=== PATIENT | male | born 1995 | race African-American/Black ===

== ENCOUNTER 2019-05-09 11:34 | Emergency (ER) | payer OTHER, SELFPAY ==
[2019-05-09 11:34] VITALS: BP 129/81; PULSE 86; RESP 18; TEMP 36.6; O2SAT 96; BMI 21.6
--- NOTE | 2019-05-09 12:59 | HMH.EDUTC ---
[facility] [place] Impression: Sinusitis Qualifiers: Sinusitis location: unspecified location Chronicity: unspecified Qualified Code(s): J32.9 - Chronic sinusitis, unspecified Disposition: Home, Self-Care Condition on Discharge: Good Instructions: Sinusitis, Sinus Headache, DI for Sinusitis Additional Instructions: Start antibiotic. Sinus infections may take 2-3 days to notice much improvement so be sure to use conservative measures as discussed for symptoms Flonase 2 spray in each nostril daily to help with nasal congestion, sinus an ear pressure/inflammation Lots of Fluids Sleep elevated Humidifer/vaporizer Follow up with family doctor if no improvement or any worsening of symptoms Prescriptions: Fluticasone Propionate [Flonase 50mcg nasal spray 16gm] 2 spr NS DAILY #1 bottle Transmission Status: Pending to [facility] methylPREDNISolone [Medrol 4mg tab] 4 mg PO DIRECTED #21 tab Transmission Status: Pending to [facility] Azithromycin [Z-Ian 250mg Tab*] 250 mg PO UD DOSE PK #6 tab Transmission Status: Pending to [facility] [place], [place] Referrals: Vlad Gutierrez [Primary Care Provider] - As needed Time of Disposition: 13:02 Medical Decision Making - Torsten Inquiry Pt receiving controlled substance: No Torsten was queried for this patient: No Vital Signs: 05/09/19 11:34 Temperature 98 F Temperature Source Oral Pulse Rate [Radial] 86 Respiratory Rate 18 Blood Pressure [Right Arm] 129/81 Blood Pressure Mean [Right Arm] 97 Blood Pressure Source [Right Arm] Automatic Cuff Blood Pressure Position [Right Arm] Sitting 02 Sat by Pulse Oximetry 96 Oxygen Delivery Method Room Air [facility] [place] - General Stated complaint: Sinus congestion Time Seen by Provider: 05/09/19 12:59 Mode of Arrival: Ambulatory Source of Information: Patient Limitations: No Limitations Description of Symptoms (Recalled from Triage Doc. by RN): FLU LAST WEEK CONTINUING WITH SINUS HEENT Symptoms (Recalled from RN notes): Yes Resp Symptoms (Recalled from RN notes): Yes Skin Symptoms (Recalled from RN notes): No MS Symptoms (Recalled from RN notes): No Functional Status (Recalled from RN notes): WNL - History of Present Illness Provider Complaint: Patient states that he had flu about a week ago and better from that now having sinus pain and pressure and blowing out yellowish green mucous from his nose and thinks he may have a sinus infection - Related Data Previous Rx's Medication Instructions Recorded Azithromycin [Z-Ian 250mg Tab*] 250 mg PO UD DOSE PK #6 tab 02/22/19 Brompheniramine/Pseudoephed/Dm 5 ml PO Q6HP PRN #240 syrup 02/22/19 [Bromfed Dm Cough Syrup] methylPREDNISolone [Medrol] 4 mg PO DIRECTED 6 Days #21 02/22/19 tab.ds.pk Azithromycin [Z-Ian 250mg Tab*] 250 mg PO UD DOSE PK #6 tab 05/09/19 Fluticasone Propionate [Flonase 2 spr NS DAILY #1 bottle 05/09/19 50mcg nasal spray 16gm] methylPREDNISolone [Medrol 4mg 4 mg PO DIRECTED #21 tab 05/09/19 tab] Allergies Allergy/AdvReac Type Severity Reaction Status Date / Time No Known Allergies Allergy Unverified 05/01/17 15:00 - Worker's Comp Is this a Worker's Comp case?: No [facility] History - Hepatitis A Screen Drug use history?: No High risk sexual behaviors?: No History of sexually transmitted infection?: No Currently employed?: No Childcare worker?: No Do you have indoor plumbing?: Yes Do you have electricity?: Yes Attestation statement:: This patient has been screened for Hepatitis A risk factors. I have reviewed the patient's past medical history: Yes 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: Denies:: Cancer, Diabetes Mellitus Type 1, Diabetes Mellitus Type 2, MRSA Amputation: No - Social History Educational Level: Completed High School Smoking Status: Never smoker Tobacco Type: smokeless tobacco # Packs/Day (cigarettes): 0 Alcohol Intake: never Alcohol Intake Frequency:: a few time
[2019-05-09 13:15] VITALS: BP 129/81; PULSE 86; RESP 18; TEMP 36.6; O2SAT 96
== END 2019-05-09 13:16 | disposition home or self-care (01) ==
PROVIDERS: Emergency Provider Nurse Practitioner; PCP Internal Medicine
DX: J32.9 Chronic sinusitis, unspecified (principal)
CPT/HCPCS: 99201

== ENCOUNTER → 2019-12-17 08:09 | Outpatient (CLI) | payer OTHER, SELFPAY ==
--- NOTE | 2019-12-17 08:11 | US_ITS ---
PROCEDURE: US ABDOMEN LIMITED CLINICAL INDICATION: EPIGASTRIC PAIN,NAUSEA COMPARISON: No exams were available for comparison FINDINGS: PANCREAS: Unremarkable. No obvious mass or abnormal fluid collection. No ductal dilatation LIVER: No focal liver lesions demonstrated. Homogeneous echogenicity. No intrahepatic biliary ductal dilatation evident. There is appropriate direction of blood flow within a non dilated portal vein RIGHT KIDNEY: Unremarkable. Normal size and echogenicity. No hydronephrosis GALLBLADDER: No gallstones, gallbladder wall thickening, pericholecystic fluid, or biliary dilatation. IMPRESSION: Unremarkable limited abdominal ultrasound as detailed above disc Dictated b Omero Pino MD 12/17/2019 14:45 Omero Pino MD in [place] 12/17/2019 14:45
--- NOTE | 2019-12-17 08:12 | FL_ITS ---
PROCEDURE: FL UPPER GI W AIR CLINICAL INDICATION: EPIGASTRIC PAIN,NAUSEA COMPARISON: No exams were available for comparison TECHNIQUE: FLUOROSCOPY TIME : 1 minutes and 41 seconds FINDINGS: The esophagus, stomach, and duodenum have an unremarkable appearance.There is no evidence of hiatal hernia. No ulcer or mass evident. No mucosal abnormalities apparent. There is normal peristalsis. The duodenal C-loop is nondisplaced. There was some mild GE reflux noted during the exam. IMPRESSION: Mild gastroesophageal reflux otherwise negative upper GI Dictated b Omero Pino MD 12/17/2019 14:43 Omero Pino MD in [place] 12/17/2019 14:43
== END ==
PROVIDERS: PCP Internal Medicine; Visit Provider Internal Medicine
DX: R10.13 Epigastric pain (principal); R11.0 Nausea
CPT/HCPCS: 74246; 76705

== ENCOUNTER 2020-02-19 13:17 | Emergency (ER) | payer OTHER, SELFPAY ==
[2020-02-19 13:23] VITALS: BP 138/68; PULSE 83; RESP 16; TEMP 36.6; O2SAT 100; BMI 21.6
--- NOTE | 2020-02-19 13:24 | XR_ITS ---
PROCEDURE: XR HAND RT MIN 3V CLINICAL INDICATION: hand pain, punched wall COMPARISON: CR HANDL3 HAND-LT-3 VIEWS from 06/02/2016 FINDINGS: No fracture or dislocation. No lytic or blastic change. There is normal mineralization. The joint spaces are well-preserved. No significant degenerative/arthritic changes. No erosive changes evident. Other findings:None. IMPRESSION: No acute findings. Dictated by: Omero Pino MD 02/19/2020 15:56 Omero Pino MD in [place] 02/19/2020 15:56
--- NOTE | 2020-02-19 13:24 | HMH.EDGENADL ---
ED Disposition Clinical Impression: Injury of right hand Qualifiers: Encounter type: initial encounter Qualified Code(s): S69.91XA - Unspecified injury of right wrist, hand and finger(s), initial encounter Sprain of hand Qualifiers: Encounter type: initial encounter Laterality: right Qualified Code(s): S63.91XA - Sprain of unspecified part of right wrist and hand, initial encounter Disposition: Home, Self-Care Condition on Discharge: Good Instructions: Sprain Additional Instructions: You have been evaluated for right hand injury, diagnosed with a sprain. No fracture seen on x-rays. Please take Tylenol ibuprofen for pain. Follow-up with your primary care doctor. Referrals: Vlad Gutierrez [Primary Care Provider] - Forms: Work/School Release Time of Disposition: 15:05 - Critical Care Critical Care Time: No Attestation: On , the high probability of a clinically significant, sudden or life threatening deterioration of the following system(s) required my full and direct attention, intervention and personal management. The time I documented below is in addition to time spent performing reported procedures but includes the following listed in this critical care notation. Medical Decision Making - Medical Records Medical records reviewed: Yes: I reviewed the patient's medical records. - Torsten Inquiry Pt receiving controlled substance: No Vital Signs: 02/19/20 13:23 02/19/20 13:45 Temperature 97.9 F Temperature Source Oral Pulse Rate [Right Brachial] 83 78 Respiratory Rate 16 Blood Pressure [Right Arm] 138/68 141/80 H Blood Pressure Mean [Right Arm] 91 100 Blood Pressure Source [Right Arm] Automatic Cuff Automatic Cuff Blood Pressure Position [Right Arm] Sitting Sitting 02 Sat by Pulse Oximetry 100 100 Oxygen Delivery Method Room Air Room Air Orders (Tests/Meds): ORDERS Category Date Time Status XR hand RT min 3V Stat Exams 02/19/20 13:24 Taken - Radiology Data #1 Image(s): Hand Image Reviewed: Yes I reviewed the patient's radiology image Preliminary Findings: Normal/NAD No acute fracture or dislocation in the metatarsals or phalanges Medical Decision Narrative: In summary this is a 24-year-old male presenting to the emergency department with right hand pain after punching a toolbox. Patient clinically stable on arrival. Concern for fracture of the metacarpals or phalanx. Will obtain x-rays of the right hand. X-rays do not show displaced fracture or obvious bony deformity. Patient counseled that he should take Tylenol and ibuprofen for pain. Follow-up with PCP. Stable for discharge. General Adult HPI - General Stated complaint: punched wall, rt hand pain Time Seen by Provider: 02/19/20 13:24 - History of Present Illness HPI narrative: 24-year-old [id number] male presenting to the emergency department with right hand pain. Yesterday afternoon he punched a toolbox with his right hand. Had immediate pain over the knuckles of his middle and ring fingers. Has not taken any medications for pain. Today noticed he had increased swelling. 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 Numbness on the dorsal aspect of his hand between the third and fourth fingers. No breaks in the skin. No pain in the wrist, forearm, elbow. - Related Data Previous Rx's Medication Instructions Recorded Azithromycin [Z-Ian 250mg Tab*] 250 mg PO UD DOSE PK #6 tab 02/22/19 Brompheniramine/Pseudoephed/Dm 5 ml PO Q6HP PRN #240 syrup 02/22/19 [Bromfed Dm Cough Syrup] methylPREDNISolone [Medrol] 4 mg PO DIRECTED 6 Days #21 02/22/19 tab.ds.pk Azithromycin [Z-Ian 250mg Tab*] 250 mg PO UD DOSE PK #6 tab 05/09/19 Fluticasone Propionate [Flonase 2 spr NS DAILY #1 bottle 05/09/19 50mcg nasal spray 16gm] methylPREDNISolone [Medrol 4mg 4 mg PO DIRECTED #21 tab 05/09/19 tab] cephALEXin [Keflex 500mg Cap] 500 mg PO TID #30 cap 05/10/19 Allergies Allergy/AdvReac Type Severity Reaction Status Date
[2020-02-19 13:45] VITALS: BP 141/80; PULSE 78; O2SAT 100
[2020-02-19 15:11] VITALS: BP 140/72; PULSE 74; RESP 16; TEMP 36.6; O2SAT 99
== END 2020-02-19 15:13 | disposition home or self-care (01) ==
PROVIDERS: Emergency Provider Emergency Medicine; PCP Internal Medicine
DX: S63.91XA Sprain of unspecified part of right wrist and hand, initial encounter (principal); W22.01XA Walked into wall, initial encounter; Y92.89 Other specified places as the place of occurrence of the external cause
CPT/HCPCS: 73130; 99282

== ENCOUNTER 2020-11-08 19:39 | Emergency (ER) | payer OTHER, SELFPAY ==
[2020-11-08 19:46] VITALS: BP 143/75; PULSE 76; RESP 14; TEMP 36.8; O2SAT 98; BMI 21.6
--- NOTE | 2020-11-08 19:48 | XR_ITS ---
PROCEDURE INFORMATION: Exam: XR Left Wrist Exam date and time: 11/08/2020 7:48 PM Age: 25 years old Clinical indication: Patient HX: Lifted object and now pain in left wrist and hand; Additional info: Injury TECHNIQUE: Imaging protocol: XR Left wrist. Views: 3 or more views. COMPARISON: CR FINL5 [id number] (PINKY)-3 VIEWS 07/14/2016 3:51 PM FINDINGS: Bones/joints: No acute fracture or dislocation. Old healed 5th metacarpal fracture noted. Soft tissues: No significant soft tissue swelling or radiopaque foreign bodies. IMPRESSION: No acute appearing findings.
--- NOTE | 2020-11-08 19:48 | XR_ITS ---
PROCEDURE INFORMATION: Exam: XR Left Hand Exam date and time: 11/08/2020 7:48 PM Age: 25 years old Clinical indication: Patient HX: Lifted object at home and now pain left wrist and hand; Additional info: Injury TECHNIQUE: Imaging protocol: XR Left hand. Views: 3 or more views. COMPARISON: CR HANDL3 HAND-LT-3 VIEWS 06/02/2016 11:21 AM FINDINGS: Bones/joints: No acute fracture or dislocation. Old healed 5th metacarpal fracture. Soft tissues: Normal. IMPRESSION: No acute findings.
--- NOTE | 2020-11-08 20:24 | HMH.EDUPEXT ---
ED Disposition Clinical Impression: Sprain and strain of wrist Sprain of hand, left Qualifiers: Encounter type: initial encounter Qualified Code(s): S63.92XA - Sprain of unspecified part of left wrist and hand, initial encounter Disposition: Home, Self-Care Condition on Discharge: Good Instructions: DI for Wrist Strain Additional Instructions: ice and see pcp for follow up Prescriptions: Meloxicam [Mobic 15 mg tab] 15 mg PO DAILY #10 tab Transmission Status: Pending to [facility] Referrals: Vlad Gutierrez [Primary Care Provider] - - Critical Care Critical Care Time: No Attestation: On 11/08/20, the high probability of a clinically significant, sudden or life threatening deterioration of the following system(s) required my full and direct attention, intervention and personal management. The time I documented below is in addition to time spent performing reported procedures but includes the following listed in this critical care notation. Medical Decision Making - Medical Records Medical records reviewed: Yes: I reviewed the patient's medical records. - Torsten Inquiry Pt receiving controlled substance: No Vital Signs: 11/08/20 19:46 Temperature 98.2 F Temperature Source Oral Pulse Rate [Right] 76 Respiratory Rate 14 Blood Pressure [Right Arm] 143/75 H Blood Pressure Mean [Right Arm] 97 Blood Pressure Source [Right Arm] Automatic Cuff Blood Pressure Position [Right Arm] Sitting 02 Sat by Pulse Oximetry 98 Oxygen Delivery Method Room Air - Lab Data Lab results reviewed: Yes: I reviewed the patient's lab results. Orders (Tests/Meds): ED MEDICATIONS Discontinued Medications Generic Name Dose Route Start Last Admin Trade Name Freq PRN Reason Stop Dose Admin Ketorolac Tromethamine 60 mg 11/08/20 19:56 11/08/20 19:58 Ketorolac 60mg/2ml Vial IM 11/08/20 19:57 60 mg ONCE ONE Administration ORDERS Category Date Time Status XR hand LT min 3V Stat Exams 11/08/20 19:48 Taken XR wrist LT min 3V Stat Exams 11/08/20 19:48 Taken - Radiology Data #1 Image(s): Wrist, Hand Image Reviewed: Yes I reviewed the patient's radiology image Preliminary Findings: No Fracture Seen Medical Decision Narrative: no fx seen Upper Extremity HPI - General Chief Complaint: Extremity Injury, Upper Stated Complaint: injured L hand lifting object Time Seen by Provider: 11/08/20 20:00 Mode of Arrival: Ambulatory Source of Information: Patient, Medical Record Limitations: No Limitations Description of Symptoms (Recalled from ER Triage Doc. by RN): Pt states he was lifting about an 135 lbs clutch and started having pain on the top of his left hand radiating to his wrist.. Pt has no visable deformity or edema. Pt has full ROM and normal Cap refill. Pt has injured that hand in the past. - History of Present Illness HPI narrative: acute lt hand /wrist pain after lifting today - not workman comp complaint: injury to: left, wrist, hand Onset (ago): hour(s) Other Extremity Injury: Left: hand, wrist Other injuries: none Handedness: right Place: home Severity: moderate Associated symptoms: denies other symptoms - Related Data Previous Rx's Medication Instructions Recorded Azithromycin [Z-Ian 250mg Tab*] 250 mg PO UD DOSE PK #6 tab 02/22/19 Brompheniramine/Pseudoephed/Dm 5 ml PO Q6HP PRN #240 syrup 02/22/19 [Bromfed Dm Cough Syrup] methylPREDNISolone [Medrol] 4 mg PO DIRECTED 6 Days #21 02/22/19 tab.ds.pk Azithromycin [Z-Ian 250mg Tab*] 250 mg PO UD DOSE PK #6 tab 05/09/19 Fluticasone Propionate [Flonase 2 spr NS DAILY #1 bottle 05/09/19 50mcg nasal spray 16gm] methylPREDNISolone [Medrol 4mg 4 mg PO DIRECTED #21 tab 05/09/19 tab] cephALEXin [Keflex 500mg Cap] 500 mg PO TID #30 cap 05/10/19 Meloxicam [Mobic 15 mg tab] 15 mg PO DAILY #10 tab 11/08/20 Allergies Allergy/AdvReac Type Severity Reaction Status Date / Time No Known Allergies All
[2020-11-08 21:17] VITALS: BP 138/68; PULSE 70; RESP 16; TEMP 36.8; O2SAT 99
== END 2020-11-08 21:20 | disposition home or self-care (01) ==
PROVIDERS: Emergency Provider Emergency Medicine; PCP Internal Medicine
DX: S63.92XA Sprain of unspecified part of left wrist and hand, initial encounter (principal); X50.0XXA Overexertion from strenuous movement or load, initial encounter; Y92.89 Other specified places as the place of occurrence of the external cause
CPT/HCPCS: 29125; 73110; 73130; 96372; 99282

== ENCOUNTER 2021-06-11 12:56 | Emergency (ER) | payer OTHER, SELFPAY ==
[2021-06-11 12:58] VITALS: BP 154/62; PULSE 95; RESP 16; TEMP 37; O2SAT 95; BMI 25.1
[2021-06-11 13:05] VITALS: BP 154/62; PULSE 88; O2SAT 96
[2021-06-11 13:30] VITALS: BP 133/78; PULSE 81; O2SAT 95
--- NOTE | 2021-06-11 13:56 | XR_ITS ---
PROCEDURE INFORMATION: Exam: XR Chest Exam date and time: 06/11/2021 1:56 PM Age: 26 years old Clinical indication: Cough TECHNIQUE: Imaging protocol: XR of the chest. Views: 1 view. COMPARISON: RF FL UPPER GI W AIR 12/17/2019 9:15 AM FINDINGS: Lungs: Unremarkable. No consolidation. Pleural spaces: Unremarkable. No pleural effusion. No pneumothorax. Heart/Mediastinum: Unremarkable. No cardiomegaly. Bones/joints: No acute findings. IMPRESSION: No acute findings.
[2021-06-11 14:00] VITALS: BP 129/70; PULSE 76; RESP 16; O2SAT 95
[2021-06-11 15:00] VITALS: BP 135/78; PULSE 63; RESP 16; O2SAT 96
--- NOTE | 2021-06-11 15:30 | HMH.EDGENADL ---
ED Disposition Clinical Impression: COVID-19 Disposition: Home, Self-Care Condition on Discharge: Good Referrals: Vlad Gutierrez [Primary Care Provider] - - Critical Care Critical Care Time: No Attestation: On 06/11/21, the high probability of a clinically significant, sudden or life threatening deterioration of the following system(s) required my full and direct attention, intervention and personal management. The time I documented below is in addition to time spent performing reported procedures but includes the following listed in this critical care notation. Medical Decision Making - Medical Records Medical records reviewed: Yes: I reviewed the patient's medical records. - Torsten Inquiry Pt receiving controlled substance: No Torsten was queried for this patient: No Vital Signs: 06/11/21 12:58 06/11/21 13:05 06/11/21 13:30 Temperature 98.6 F Temperature Source Oral Pulse Rate 88 81 Pulse Rate [Right Radial] 95 H Respiratory Rate 16 Blood Pressure 154/62 H 133/78 Blood Pressure [Right Arm] 154/62 H Blood Pressure Mean 116 96 Blood Pressure Mean [Right Arm] 92 Blood Pressure Source [Right Arm] Automatic Cuff Blood Pressure Position [Right Arm] Sitting 02 Sat by Pulse Oximetry 95 96 95 Oxygen Delivery Method Room Air 06/11/21 14:00 Temperature Temperature Source Pulse Rate 76 Pulse Rate [Right Radial] Respiratory Rate 16 Blood Pressure 129/70 Blood Pressure [Right Arm] Blood Pressure Mean 89 Blood Pressure Mean [Right Arm] Blood Pressure Source [Right Arm] Blood Pressure Position [Right Arm] 02 Sat by Pulse Oximetry 95 Oxygen Delivery Method - Lab Data Lab results reviewed: Yes: I reviewed the patient's lab results. Orders (Tests/Meds): ED MEDICATIONS Discontinued Medications Generic Name Dose Route Start Last Admin Trade Name Freq PRN Reason Stop Dose Admin Acetaminophen 1,000 mg 06/11/21 13:56 06/11/21 14:29 Acetaminophen 500mg Tab PO 06/11/21 13:57 1,000 mg ONCE ONE Administration Lactated Ringer's 1,000 mls @ 999 mls/hr 06/11/21 14:00 06/11/21 14:29 Lactated Ringer's 1000 Ml Bag IV 06/11/21 15:00 999 mls/hr .Q1H1M KIRT Administration Ketorolac Tromethamine 15 mg 06/11/21 13:56 06/11/21 14:30 Ketorolac 30mg/Ml Vial IV 06/11/21 13:57 15 mg ONCE ONE Administration ORDERS Category Date Time Status Covid-19 Nasal PCR ([facility]) Routine Lab 06/11/21 13:05 Received Medical Decision Narrative: Patient is a 26-year-old male with no past medical history presenting to the ED for body aches. Patient is awake, alert, not in acute distress. Patient is medically stable, afebrile. Patient's physical exam is unremarkable. DDX includes but is not limited to for respiratory infection, COVID-19, low concern for bacterial pneumonia. At this point a Covid swab is performed. X-ray is performed which shows no focal consolidation. She is given IV fluids, Tylenol, Toradol. Patient feels much better. At this point patient is stable for discharge. Patient is given strict return precautions and follow-up instructions. General Adult HPI - General Chief complaint: Upper Respiratory Infection Stated complaint: covid exposure, symptoms Time Seen by Provider: 06/11/21 12:58 Mode of Arrival: Ambulatory Limitations: No Limitations Description of Symptoms (Recalled from ER Triage Doc. by RN): Pt c/o fever, bodyaches, weakness, REYES since yesterday - History of Present Illness HPI narrative: Patient is a 26-year-old male with no past medical history presenting to the ED with body aches. Patient states that he has had arthralgias, myalgias, fevers for the past 2 days. Patient states that he has a sick contacts per his mom and sister who were Covid positive last week. Patient is unvaccinated. Patient does not have any respiratory symptoms. Denies any cough, shortness of breath, chest pain. Patient denies any abdominal pain, nausea,
[2021-06-11 16:38] VITALS: BP 131/76; PULSE 70; RESP 15; TEMP 37; O2SAT 96
== END 2021-06-11 16:39 | disposition home or self-care (01) ==
PROVIDERS: Emergency Provider Emergency Medicine; PCP Internal Medicine
DX: J06.9 Acute upper respiratory infection, unspecified (principal); U07.1 COVID-19
CPT/HCPCS: 71045; 96365; 96375; 99283; C9803; U0003; U0005

== ENCOUNTER 2021-07-15 18:19 | Emergency (ER) | payer OTHER, SELFPAY ==
[2021-07-15 18:19] VITALS: BP 145/92; PULSE 64; RESP 16; TEMP 36.8; O2SAT 99; BMI 24.4
--- NOTE | 2021-07-15 18:27 | XR_ITS ---
PROCEDURE INFORMATION: Exam: XR Left Hand Exam date and time: 07/15/2021 6:27 PM Age: 26 years old Clinical indication: Injury or trauma; Other: Mashed finger; Work related; Blunt trauma (contusions or hematomas); Left; Middle finger TECHNIQUE: Imaging protocol: XR Left hand. Views: 3 or more views. COMPARISON: CR XR HAND LT MIN 3V 11/08/2020 7:54 PM FINDINGS: Bones/joints: Acute oblique fracture extends through the tuft of the 3rd distal phalanx, nondisplaced, only well seen on AP series 1. Mild deformity of the 5th metacarpal diaphysis has the appearance of an old healed injury. No other acute appearing fracture or dislocation. No significant arthritic deformities. There are no lytic skeletal lesions seen. Bone mineralization appears within normal limits. Soft tissues: Soft tissue swelling. No radiopaque foreign bodies. No pathologic soft tissue calcification. IMPRESSION: 1. Acute nondisplaced fracture of tuft of the 3rd distal phalanx. 2. Additional nonemergency and chronic findings as above.
--- NOTE | 2021-07-15 19:04 | HMH.EDGENADL ---
ED Disposition Clinical Impression: Fracture of distal phalanx of left middle finger Qualifiers: Encounter type: initial encounter Fracture type: closed Fracture alignment: nondisplaced Qualified Code(s): S62.663A - Nondisplaced fracture of distal phalanx of left middle finger, initial encounter for closed fracture Disposition: Home, Self-Care Condition on Discharge: Good Instructions: DI for Finger Fracture Prescriptions: Amoxicillin/Potassium Clav [Amox-Clav 875-125 mg Tablet] 1 tab PO BID #14 tab Transmission Status: Pending to [facility] Ibuprofen [Ibuprofen 800mg Tablet] 800 mg PO TIDP PRN #20 tab PRN Reason: Moderate Pain Transmission Status: Pending to [id number] Referrals: Vlad Gutierrez [Primary Care Provider] - - Critical Care Critical Care Time: No Attestation: On 07/15/21, the high probability of a clinically significant, sudden or life threatening deterioration of the following system(s) required my full and direct attention, intervention and personal management. The time I documented below is in addition to time spent performing reported procedures but includes the following listed in this critical care notation. Medical Decision Making - Medical Records Medical records reviewed: Yes: I reviewed the patient's medical records. - Torsten Inquiry Pt receiving controlled substance: No Vital Signs: 07/15/21 18:19 Temperature 98.3 F Temperature Source Oral Pulse Rate [Right Radial] 64 Respiratory Rate 16 Blood Pressure [Right Arm] 145/92 H Blood Pressure Mean [Right Arm] 109 Blood Pressure Source [Right Arm] Automatic Cuff Blood Pressure Position [Right Arm] Sitting 02 Sat by Pulse Oximetry 99 Oxygen Delivery Method Room Air Orders (Tests/Meds): ED MEDICATIONS Discontinued Medications Generic Name Dose Route Start Last Admin Trade Name Freq PRN Reason Stop Dose Admin Ibuprofen 800 mg 07/15/21 18:27 07/15/21 18:50 Ibuprofen 400 Mg Tablet PO 07/15/21 18:28 800 mg ONCE ONE Administration - Radiology Data #1 Image(s): Hand Image Reviewed: Yes I reviewed the patient's radiology results, Yes I reviewed the patient's radiology image, Yes I have reviewed radiologist's interpretation IMPRESSION: 1. Acute nondisplaced fracture of tuft of the 3rd distal phalanx. 2. Additional nonemergency and chronic findings as above. - Reevaluation(s) Time: 19:36 Reevaluation #1: Patient does have evidence of a distal fracture of the distal phalanx of the middle digit. Patient was placed in immobilizer. Placed on antibiotics. Needs to follow-up with hand surgery. Given strict return precautions. Verbalized understanding. Medical Decision Narrative: 26-year-old male presented to the emergency department with some left middle finger pain after direct trauma. Patient is small abrasion. Up-to-date on tetanus. Imaging obtained. General Adult HPI - General Chief complaint: PAIN Stated complaint: L middle finger smashed Time Seen by Provider: 07/15/21 18:25 Mode of Arrival: Ambulatory Limitations: No Limitations Description of Symptoms (Recalled from ER Triage Doc. by RN): Pt c/o left middle finger pain. Advises that he smashed it - History of Present Illness HPI narrative: 26-year-old male presented to the emergency department with injury to his left middle finger. Patient states that he slammed his finger in a machine while he was at work. He is a very small abrasion to the palmar aspect of the middle finger. He complains of pain in the distal aspect. Still has good range of motion, elicits pain. Denies any other injuries. Up-to-date on tetanus. No chest pain shortness of breath. No abdominal pain or vomiting. No headache or change in vision. No focal weakness. - Related Data Previous Rx's Medication Instructions Recorded Meloxicam [Mobic 15 mg tab] 15 mg PO DAILY #10 tab 11/08/20 buspirone 5 mg tablet 5 mg PO BID #60 tab 0
[2021-07-15 19:54] VITALS: BP 134/75; PULSE 60; RESP 18; TEMP 36.8; O2SAT 99
== END 2021-07-15 19:55 | disposition home or self-care (01) ==
PROVIDERS: Emergency Provider Emergency Medicine; PCP Internal Medicine
DX: S62.663A Nondisplaced fracture of distal phalanx of left middle finger, initial encounter for closed fracture (principal); F17.210 Nicotine dependence, cigarettes, uncomplicated; Z79.899 Other long term (current) drug therapy; Y93.89 Activity, other specified; Y92.89 Other specified places as the place of occurrence of the external cause; Y99.0 Civilian activity done for income or pay
CPT/HCPCS: 73130; 99283

== ENCOUNTER → 2021-10-22 09:36 | Outpatient (CLI) | payer OTHER, SELFPAY | PROVIDERS: PCP Internal Medicine; Visit Provider Urology | DX: Z01.812 Encounter for preprocedural laboratory examination (principal); Z20.822 Contact with and (suspected) exposure to COVID-19; Z30.2 Encounter for sterilization | CPT/HCPCS: C9803; U0003; U0005 ==

== ENCOUNTER 2021-10-24 09:27 | Day surgery (SDC) | payer OTHER, SELFPAY ==
[2021-10-20 14:18] VITALS: BMI 25.1
[2021-10-24 09:54] VITALS: BP 136/77; PULSE 59; RESP 14; TEMP 36.7; O2SAT 98
[2021-10-24 11:13] VITALS: BP 125/86; PULSE 58; RESP 18; TEMP 36.3; O2SAT 99
[2021-10-24 11:21] VITALS: BP 125/86; PULSE 58; RESP 18; O2SAT 99
--- NOTE | 2021-10-24 12:33 | HMH.OPNOTE ---
Date of procedure: 10/24/21 Pre-op Diagnosis:: Sterilization Post-op Diagnosis:: Sterilization Procedure performed:: Vasectomy Surgeon:: Noe Murray MD Anesthesia: local Estimated blood loss (mL): 2 Clinical Note:: 26-year-old male seen previously for vasectomy consultation presents for the procedure today. Operative findings:: Physical exam showed normal sized testicles without evidence of masses or other abnormality. Operative note:: Patient taken to the operating room after informed consent was obtained. On the stretcher he was prepped and draped in the standard surgical fashion physical examination revealed normal scrotum and testicles. The left vas was palpated and brought up to the midline raphae. Local anesthetic was placed under the skin and in and around the vas. Scalpel was then used to make a small incision in the skin in the vas was grasped with a tenaculum and brought up through the incision. The basal sheath was incised and the vas proper was isolated from its surrounding tissue. 1 clip was placed proximally and distally and a 1 cm segment of the vas excised. The basal lumen was cauterized and hemostasis achieved of the surrounding tissues. The left vas was dropped back into the hemiscrotum and the identical procedure was performed on the right side bringing the right vas up through the same midline incision. After the right vas was ligated and clipped it too was got back into the right hemiscrotum. There was good hemostasis and a 3-0 chromic in a horizontal mattress fashion was placed into the skin. Compression dressing applied. Patient tolerated procedure well no complications. Condition: stable Disposition: same day Specimens:: Vas segments were not sent Complications:: None
== END 2021-10-24 11:21 | disposition home or self-care (01) ==
PROVIDERS: PCP Internal Medicine; Visit Provider Urology
PROC: (CPT 55250; principal; 2021-10-24 10:30)
DX: Z30.2 Encounter for sterilization (principal); Z79.899 Other long term (current) drug therapy
CPT/HCPCS: 55250

== ENCOUNTER 2022-01-26 02:10 | Observation (INO) | payer OTHER, SELFPAY ==
[2022-01-26] VITALS (22 sets, daily range): BP systolic 96–153; BP diastolic 51–82; PULSE 48–78; RESP 11–20; TEMP 36.5–36.9; O2SAT 96–100; BMI 25.1; BMI 23.8
--- NOTE | 2022-01-26 02:19 | ECG_ITS ---
APPROVED REPORT Exam: Resting ECG HR:65 bpm ECG Measurements Heart Rate 65 AXES VA 148 P 71 QRSd 78 QRS 87 QT 485 T 62 QTc 496 Conclusion SINUS RHYTHM WITH SINUS ARRHYTHMIA PROLONGED QT INTERVAL ABNORMAL ECG UNCONFIRMED REPORT Electronically signed by : Kaleb Bustamante MD 01/26/2022 19:28:07
--- NOTE | 2022-01-26 02:22 | HMH.EDGENADL ---
Discharge Plan Disposition Patient Disposition: Admitted as Observation Condition: Fair Prescriptions Prescriptions: No Action ibuprofen 800 MG tablet 800 mg PO TIDP PRN (Reason: Moderate Pain) Qty: 20 0RF fluticasone propionate 120 SPRAY bottle 1 spr NS BID fluoxetine 20 MG capsule 20 mg PO DAILY Referrals Follow up/Referrals: Vlad Gutierrez MD [Primary Care Provider] - See instructions Clinical Impressions Clinical Impression: Medication overdose, Prolonged QT interval Discharge ED Provider: Kacy Elizabeth Adult HPI General Chief complaint: Psychiatric Symptoms Stated complaint: Intentionally took 15-20 Buspar Time Seen by Provider: 01/26/22 02:22 Mode of Arrival: Ambulatory Source of Information: Patient Limitations: No Limitations History of Present Illness HPI narrative: 26-year-old male presenting to the emergency department after intentional overdose. Over the course of the last hour he has taken as many as 15 tablets of 5 mg buspirone. This is a medication that is prescribed to him. He took the medication in an attempt to end his life. Currently feels somewhat lightheaded. Denies vision changes, chest pain, shortness of breath. Says he has been very depressed. Going through a break-up with his and their children. Denies any coingestions, alcohol or other medications. He has been hospitalized for mental health before, about 1 year ago at [facility] [place] Related Data Home Medications Medication Instructions Recorded Confirmed fluoxetine 20 mg capsule 20 mg PO DAILY Depression 10/24/21 10/24/21 fluticasone propionate 50 1 spr intranasal BID Allergy 10/24/21 10/24/21 mcg/actuation nasal symptoms spray,suspension Previous Rx's Medication Instructions Recorded ibuprofen 800 mg tablet 800 mg PO TIDP PRN Moderate Pain 07/15/21 #20 tabs Allergies Allergy/AdvReac Type Severity Reaction Status Date / Time No Known Allergies Allergy Verified 10/24/21 09:53 PFSH PFSH Social History Smoking Status: Former smoker alcohol intake: current substance use type: marijuana current occupational status: employed Travel in the last 8 weeks: None household members: spouse and family housing: house number of children: 1 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 caffeine: Yes ROS Obtained: Yes All systems reviewed & no additional complaints except as documented Constitutional Constitutional: Denies chills, Denies fever(s) and Denies headache(s) Eyes Eyes: Denies blind spots and Denies blurry vision ENT Ears, Nose, Mouth, and Throat: Reports dizziness, Denies dry mouth, Denies headache(s) and Reports other (lightheaded) Cardiovascular Cardiovascular: Denies chest pain, Denies dyspnea and Denies palpitations Respiratory Respiratory: Denies cough and Denies dyspnea Gastrointestinal Gastrointestingal: Denies abdominal pain, nausea or vomiting Integumentary/Breasts Skin/Breast: Denies redness and Denies rash Neurologic Neurologic: Reports dizziness and Denies headache(s) Endocrine Endocrine: Denies palpitations Physical Exam General General appearance: alert and in no apparent distress Head Head exam: atraumatic and normocephalic Eye Eye exam: Present normal appearance; Absent conjunctival redness Respiratory Respiratory exam: Present normal lung sounds bilaterally; Absent respiratory distress or wheezes Cardiovascular Cardiovascular exam: Present regular rate and normal rhythm Abdominal Exam Abdominal exam: Present soft; Absent distention or tenderness Extremities Exam Extremities exam: Present normal inspection and full ROM Neurological Exam Neurological exam: Present alert, oriented X3 and normal gait Psychiatric Psychiatric exam: Present normal affect and depressed (tearful) Skin Skin exam: Present warm and dry; Absent rash Medical Decision Making Medical Records Medical records reviewed: Yes I reviewed the patient's medical records.
--- NOTE | 2022-01-26 02:25 | PC.NURSE ---
ONE ON ONE INITIATED, CLOTHING REMOVED AND PLACED IN GOWN.
--- NOTE | 2022-01-26 02:34 | PC.NURSE ---
POISON CONTROL CALLED AT [id number] TO CATHRYN AND WAS DIRECTED TO MONITOR SYMPTOMS AND ORDER CMP,TYLENOL, ASPRIN, EKG,UDS IV FLUIDS AND BENZOS FOR SEIZURES
[2022-01-26 02:35] LABS: Coronavirus 19, PCR Not Detected (NotDetected); Influenza A, PCR Not Detected (NotDetected); Influenza B, PCR Not Detected (NotDetected)
--- NOTE | 2022-01-26 02:35 | PC.NURSE ---
Pt advises that he is willing to go somewhere voluntarily. He also asked if someone would call and update his mother.
[2022-01-26 02:43] LABS: Chloride 103 mmol/L (98-107); Sodium 139 mmol/L (136-145)
[2022-01-26 02:44] LABS: Potassium 3.5 mmoL/L (3.5-5.1)
[2022-01-26 02:46] LABS: Anion Gap 11.5 mEq/L (5-15); Blood Urea Nitrogen 15 mg/dl (9-20); Carbon Dioxide 28 mmol/L (22.0-30.0); Creatinine Clearance Estimated 130 mL/min (50-200); Estimated Glomerular Filt Rate 91 ml/min (>60); GFR (African American) 110 ML/MIN (>60)
[2022-01-26 02:47] LABS: Calcium 8.7 mg/dl (8.4-10.2); Glucose 100 mg/dl (74-100)
[2022-01-26 02:52] LABS: Amphetamine/Metha Screen,Urine Negative ng/ml (<1000)
[2022-01-26 02:53] LABS: Barbiturates Screen,Urine Negative ng/ml (<200); Benzodiazepines Screen,Urine Negative ng/ml (<200)
[2022-01-26 02:54] LABS: Cannabinoid Screen,Urine Negative ng/ml (<50); Cocaine Screen,Urine Negative ng/ml (<300)
[2022-01-26 02:55] LABS: Methadone Screen,Urine Negative ng/ml (<300)
[2022-01-26 02:56] LABS: Opiate Screen,Urine Negative ng/ml (<300); Phencyclidine Screen,Urine Negative ng/ml (<25)
[2022-01-26 02:59] LABS: Acetaminophen < 10 ug/ml (10-30); Ethyl Alcohol < 10 mg/dl (0-10); Salicylate < 1.0 mg/dL (2.0-20.0)
--- NOTE | 2022-01-26 03:00 | PC.NURSE ---
Pt asked for us to call his sister, Marleen. Called but v/m not set up.
--- NOTE | 2022-01-26 04:50 | PC.NURSE ---
Called [facility], s/w dental insurance coordinator and gave information for possible transfer. Will fax EKG, labs, and face-sheet to fax [phone]
--- NOTE | 2022-01-26 05:23 | PC.NURSE ---
[facility] called back requesting CBC and Liver panel
[2022-01-26 05:27] LABS: Basophils # 0.2 K/mm3 (0-0.2); Eosinophils # 0.5 K/mm3 (0.0-0.4); Eosinophils % 4.7 % (0.1-12.0); Hematocrit 49.4 % (42.0-52.0); Hemoglobin 16.8 g/dL (14.1-18.0); Lymphocytes # 3.8 K/mm3 (0.7-4.5); Lymphocytes % 33.9 % (10-50); Mean Corpuscular Hemoglobin 30.2 pg (27.0-31.2); Mean Corpuscular Volume 88.8 fl (80-94); Monocytes # 0.9 K/mm3 (0.1-1.0); Monocytes % 8.5 % (1.7-9.3); Neutrophils # 5.7 K/mm3 (1.8-7.8); Neutrophils % 50.9 % (37.0-80.0); Platelet Count 277 K/mm3 (142-424); Red Blood Count 5.56 M/mm3 (4.60-6.20); Red Cell Distribution Width 12.2 % (11.5-17.5); White Blood Count 11.2 K/mm3 (4.8-10.8)
[2022-01-26 05:32] LABS: Alanine Aminotransferase 23 U/L (12-78); Albumin Level 4.7 g/dl (3.5-5.0); Alkaline Phosphatase 91 U/L (38-126); Aspartate Amino Transferase 38 U/L (17-59); Bilirubin,Direct 0.1 mg/dl (0.0-0.4); Bilirubin,Indirect 1.1 mg/dL (0.0-0.9); Bilirubin,Total 1.2 mg/dl (0.2-1.3); Bilirubin,Unconjugated 1.1 mg/dL (0.0-1.1)
[2022-01-26 05:41] LABS: POC Glucose,Bedside 95 (70-110)
--- NOTE | 2022-01-26 05:46 | PC.NURSE ---
Pt's mother returned phone call. Update's her on pt's POC and condition. Stated she needed to go to work today, but would be available for updates. She also gave pt's father cell (Jamaal) [phone]
--- NOTE | 2022-01-26 06:37 | PC.NURSE ---
Poison control called back for update. They requested a repeat EKG d/t QTc 496, would prefer to be < 450
--- NOTE | 2022-01-26 06:42 | ECG_ITS ---
APPROVED REPORT Exam: Resting ECG HR:56 bpm ECG Measurements Heart Rate 56 AXES ID 147 P 76 QRSd 82 QRS 88 QT 550 T 76 QTc 541 Conclusion SINUS BRADYCARDIA WITH MARKED SINUS ARRHYTHMIA Diffuse ST elevation - consider pericarditis UNCONFIRMED REPORT Electronically signed by : Kaleb Bustamante MD 01/26/2022 19:27:59
--- NOTE | 2022-01-26 06:49 | PC.NURSE ---
Pt voiced no complaints at this time. Pt offered breakfast tray, but he declined. Pt stated he was just tired
--- NOTE | 2022-01-26 06:59 | PC.NURSE ---
Called Poison control back to update repeat EKG QTc is 541 now. They recommend pt to have a Magnesium level, IV fluids, cardiac consult and possible admission.
[2022-01-26 07:10] LABS: Magnesium 1.8 mg/dl (1.6-2.3)
--- NOTE | 2022-01-26 07:22 | PC.NURSE ---
Shift change, tech @ BS
--- NOTE | 2022-01-26 07:35 | PC.NURSE ---
offered pt breakfast tray, pt declined
--- NOTE | 2022-01-26 07:35 | PC.NURSE ---
DANETTE RN in room to do EKG
--- NOTE | 2022-01-26 07:37 | ECG_ITS ---
APPROVED REPORT Exam: Resting ECG HR:45 bpm ECG Measurements Heart Rate 45 AXES NJ 135 P 74 QRSd 82 QRS 88 QT 617 T 84 QTc 573 Conclusion SINUS BRADYCARDIA PROLONGED QT INTERVAL CRITICAL TEST RESULT UNCONFIRMED REPORT Electronically signed by : Kaleb Bustamante MD 01/26/2022 19:27:08
--- NOTE | 2022-01-26 07:44 | PC.NURSE ---
hand miter operator paged dr. chambers who is contract recruiter for service pts.
--- NOTE | 2022-01-26 07:49 | PC.NURSE ---
KOKO CASTRO speaking with Dr Renee who is precision farming specialist for service pts.
--- NOTE | 2022-01-26 07:51 | PC.NURSE ---
notified care management of admission, spoke with Lori, also notified her pt records have been sent to [facility] but pt has not accepted to their facility r/t long QT on ekg.
--- NOTE | 2022-01-26 08:11 | PC.NURSE ---
pt sleeping at this time, staff at BS, will continue to monitor
--- NOTE | 2022-01-26 08:15 | PC.NURSE ---
called cardiology office and infomed them of pt consult.
--- NOTE | 2022-01-26 08:55 | PC.NURSE ---
mariola meadows at bedside assessing pt
--- NOTE | 2022-01-26 09:00 | PC.NURSE ---
report called to floor
--- NOTE | 2022-01-26 09:28 | PC.NURSE ---
Omer from Cards speaking with pt
--- NOTE | 2022-01-26 09:31 | HMH.PHAINT1 ---
Pharmacy Intervention Comments: MEDICATION RECONCILIATION COMPLETED ON PATIENT USING EXTERNAL FILL HISTORY FROM PHARMACY AND CALL TO CLINIC PHARMACY. -CHARLES BAUTISTA, NELLYD
--- NOTE | 2022-01-26 09:32 | P.CONPHA_ITS ---
[facility] Pharmacy VTE Monitoring Patient Demographics Admission date: 01/26/22 Report Date: 01/26/22 Time: 09:32 Patient Allergies No Known Allergies Allergy (Verified 10/24/21 09:53) Height: 1.8 m Weight: 81.647 kg Current Active Problems (Updated 01/26/22 @ 07:51 by Kacy Elizabeth DO) Medication overdose (Acute) Prolonged QT interval (Acute) VTE Risk Labs: VTE Related Lab Results Hgb 16.8 g/dL (14.1-18.0) 01/26/22 01:30 Hct 49.4 % (42.0-52.0) 01/26/22 01:30 Plt Count 277 K/mm3 (142-424) 01/26/22 01:30 BUN 15 mg/dl (9-20) 01/26/22 01:30 Creatinine 1.00 mg/dl (0.66-1.25) 01/26/22 01:30 Estimated Creat Clear 130 mL/min (50-200) 01/26/22 01:30 Prophylaxis VTE Prophylaxis Ordered?: Yes Types of VTE Prophylaxis: TEDS Knee High Location of Applied Device: Bilateral Lower Extremeties
--- NOTE | 2022-01-26 09:38 | PC.NURSE ---
Poison control called back about patient, asked if patient had been given magnesium, to raise to upper level to help with Prolonged QRS , cardiology has seen patient, told poison control that we would notify cardiology about raising magnesium level to help with prolonged QRS
--- NOTE | 2022-01-26 09:46 | EXP.CARD.CON ---
History of Present Illness History of Present Illness Consult date: 01/26/22 Requesting physician: Theodore Renee Chief complaint: Buspirone overdose Additional 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:: 1. History of asthma 2. Psychiatric illness with history of treatment for depression and suicidal ideation 3. Prolonged QTC, 01/26/2022 secondary to buspirone overdose 4. Former smoker of 1 pack/day History of present illness: 26-year-old male presenting to the emergency department after intentional overdose.? Over the course of the last hour he has taken as many as 15 tablets of 5 mg buspirone.? This is a medication that is prescribed to him.? He took the medication in an attempt to end his life.? Currently feels somewhat lightheaded.? Denies vision changes, chest pain, shortness of breath.? Says he has been very depressed.? Going through a break-up with his and their children.? Denies any coingestions, alcohol or other medications.? He has been hospitalized for mental health before, about 1 year ago at [facility] The above per KOKO Abdi MD 26-year-old male presented to the emergency department after intentional overdose with approximately 15 tablets of 5 mg buspirone over 1 hour period. Patient states this was prompted by his leaving him and take both children (ages 6 months and 4 years). Cardiology consulted due to QTC prolongation on EKG. Currently no arrhythmias. Poison control was contacted and suggested supplemental magnesium to get the value up to the upper limits of normal which could help clear out the buspirone a little faster. 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 caffeine: Yes Review of Systems Constitutional Constitutional: Denies headache(s) ENT Ears, Nose, Mouth, and Throat: Reports dizziness and Denies headache(s) *Neurologic Neurologic: Reports dizziness and Denies headache(s) Exam Data for Last 24 hours Vital signs and Labs for Last 24 Hours: Temp Pulse Resp BP Pulse Ox 98.1 F 62 16 117/63 98 01/26/22 02:12 01/26/22 09:31 01/26/22 09:31 01/26/22 09:31 01/26/22 09:31 Laboratory Results - last 24 hr 01/26/22 01:30: Sodium 139, Potassium 3.5, Chloride 103, Carbon Dioxide 28, Anion Gap 11.5, BUN 15, Creatinine 1.00, Estimated Creat Clear 130, Estimated GFR 91, Est GFR ( Amer) 110, Glucose 100, Calcium 8.7, Salicylates < 1.0 L, Acetaminophen < 10 L 01/26/22 01:30: Plasma/Serum Alcohol < 10 01/26/22 01:30: WBC 11.2 H, RBC 5.56, Hgb 16.8, Hct 49.4, MCV 88.8, MCH 30.2, MCHC 34.0, RDW 12.2, Plt Count 277, MPV 8.0, Neut % (Auto) 50.9, Lymph % (Auto) 33.9, [place] % (Auto) 8.5, Eos % (Auto) 4.7, Baso % (Auto) 2.0, Neut # (Auto) 5.7, Lymph # (Auto) 3.8, [place] # (Auto) 0.9, Eos # (Auto) 0.5 H, Baso # (Auto) 0.2 01/26/22 01:30: Total Bilirubin 1.2, Direct Bilirubin 0.1, Conjugated Bilirubin 0.0, Indirect Bilirubin 1.1 H, Unconjugated Bilirubin 1.1, AST 38, ALT 23, Alkaline Phosphatase 91, Total Protein 8.0, Albumin 4.7 01/26/22 01:30: Magnesium 1.8 01/26/22 02:20: Urine Opiates Screen Negative, Urine Methadone Screen Negative, Ur Barbituates Screen Negative, Ur Phencyclidine Scrn Negative, Ur Amphetamines Screen Negative, U Benzodiazepines Scrn Negative, Urine Cocaine Screen Negative, U Marijuana (THC) Screen Negative 01/26/22 02:20: SARS-CoV-2 (PCR) Not detected, Influenza A Untype (PCR) Not detected, Influenza Type B (PCR) Not detected 01/26/22 02:47: POC Glucose 95 I & O for Last 24 hours: Intake & Output 01/23/22 01/24/22 01/25/22 01/26/22 11:59 11:59 11:59 11:59 Weight 180 lb Meds Home Medications and Allergies Home Medications Medication Instructions Recorded Confirmed Type fluoxetine 20 mg capsule 20 mg PO
--- NOTE | 2022-01-26 09:51 | PC.NURSE ---
mariola meadows at the bedside to speak to pt. mariola spoke to this nurse who states holley alvarez will be to talk to patient to set up insurance for pt.
--- NOTE | 2022-01-26 10:13 | PC.NURSE ---
pt is awake and moving around in stretcher
--- NOTE | 2022-01-26 10:15 | PC.NURSE ---
spoke with vishal in pharmacy who states he will mix mag and bring to the ed for administration
--- NOTE | 2022-01-26 10:38 | PC.NURSE ---
pt transported to the floor via stretcher by special inspector and 1:1 tech
--- NOTE | 2022-01-26 10:42 | PC.NURSE ---
Pt arrived to the floor at this time
--- NOTE | 2022-01-26 10:52 | PC.NURSE ---
pt in room upstairs on floor with tech
--- NOTE | 2022-01-26 11:49 | PC.NURSE ---
pt awake and sitting in bed. Rn came in to assess pt also registration came to assist with potential insurance
--- NOTE | 2022-01-26 12:22 | PC.NURSE ---
pt is sitting up in bed eating lunch watching tv
--- NOTE | 2022-01-26 12:45 | EXP.HP ---
History of Present Illness *Admission Date: 01/26/22 *Reason for visit:: Overdose *History of present illness: 26-year-old male presented to the emergency department after intentional overdose with approximately 15 tablets of 5 mg buspirone over 1 hour period.? Patient states this was prompted by his leaving him and taking both children (ages 6 months and 4 years).? Cardiology consulted due to QTC prolongation on EKG.? Currently no arrhythmias.? Poison control was contacted and suggested supplemental magnesium to get the value up to the upper limits of normal which could help clear out the buspirone a little faster. (above as per Omer Meek - Cardiology) Further to above, the patient does see Dr. Gutierrez and Kecia Santamaria. He stopped taking his psychiatric medications back in September. 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 pets and animals: Yes pets and animals: cat(s) and dog(s) sexually active: Yes caffeine: Yes Review of Systems Constitutional Constitutional: Denies fever(s), Reports headache(s) and Denies weakness Eyes Eyes: Denies blurry vision and Denies diplopia ENT Ears, Nose, Mouth, and Throat: Reports headache(s), Denies nasal congestion, Denies sore throat and Denies vertigo *Cardiovascular Cardiovascular: Denies chest pain and Denies dyspnea *Respiratory Respiratory: Denies cough and Denies dyspnea *Gastrointestinal Gastrointestinal: Denies abdominal pain, Denies loose stools, Denies nausea and Denies vomiting *Genitourinary Genitourinary: Denies difficulty urinating and Denies dysuria *Musculoskeletal Musculoskeletal: Denies arthralgias and Denies myalgias *Neurologic Neurologic: Reports headache(s), Denies vertigo and Denies weakness Psychiatric Psychiatric: Reports depression and Reports suicidal ideation Meds Home Medications and Allergies Home Medications Medication Instructions Recorded Confirmed Type fluoxetine 20 mg capsule 20 mg PO DAILY MOOD 01/26/22 01/26/22 History New Prescriptions to Start Prescriptions: Allergies Allergy/AdvReac Type Severity Reaction Status Date / Time No Known Allergies Allergy Verified 10/24/21 09:53 Exam Data for Last 24 hours Vital signs and Labs for Last 24 Hours: Temp Pulse Resp BP Pulse Ox 98.1 F 58 L 16 118/59 L 98 01/26/22 12:00 01/26/22 12:00 01/26/22 12:00 01/26/22 12:00 01/26/22 12:00 Laboratory Results - last 24 hr 01/26/22 01:30: Sodium 139, Potassium 3.5, Chloride 103, Carbon Dioxide 28, Anion Gap 11.5, BUN 15, Creatinine 1.00, Estimated Creat Clear 130, Estimated GFR 91, Est GFR ( Amer) 110, Glucose 100, Calcium 8.7, Salicylates < 1.0 L, Acetaminophen < 10 L 01/26/22 01:30: Plasma/Serum Alcohol < 10 01/26/22 01:30: WBC 11.2 H, RBC 5.56, Hgb 16.8, Hct 49.4, MCV 88.8, MCH 30.2, MCHC 34.0, RDW 12.2, Plt Count 277, MPV 8.0, Neut % (Auto) 50.9, Lymph % (Auto) 33.9, [place] % (Auto) 8.5, Eos % (Auto) 4.7, Baso % (Auto) 2.0, Neut # (Auto) 5.7, Lymph # (Auto) 3.8, [place] # (Auto) 0.9, Eos # (Auto) 0.5 H, Baso # (Auto) 0.2 01/26/22 01:30: Total Bilirubin 1.2, Direct Bilirubin 0.1, Conjugated Bilirubin 0.0, Indirect Bilirubin 1.1 H, Unconjugated Bilirubin 1.1, AST 38, ALT 23, Alkaline Phosphatase 91, Total Protein 8.0, Albumin 4.7 01/26/22 01:30: Magnesium 1.8 01/26/22 02:20: Urine Opiates Screen Negative, Urine Methadone Screen N
--- NOTE | 2022-01-26 13:33 | ECG_ITS ---
APPROVED REPORT Exam: Resting ECG HR:55 bpm ECG Measurements Heart Rate 55 AXES [place] 144 P 75 QRSd 77 QRS 88 QT 556 T 75 QTc 546 Conclusion SINUS BRADYCARDIA WITH SINUS ARRHYTHMIA PROLONGED QT INTERVAL CRITICAL TEST RESULT UNCONFIRMED REPORT Electronically signed by : Kaleb Bustamante MD 01/26/2022 19:21:48
--- NOTE | 2022-01-26 13:35 | PC.NURSE ---
1:1 tech back from lunch pt in bed watching tv and talking
--- NOTE | 2022-01-26 14:05 | PC.NURSE ---
patient has done well. on admission assessment noted thoughts of suicide is a frequent occurrence for him. this isn't a new thought but it had only gotten worse with his current life events. one on one in place. heart monitor in place. mentions at home it is common for him to have some palpitations especially with lying on his side. no complaints at this time. seems to be in decent spirits at this time. no questions or concerns. encouraged him to ring out as needed. did request nicotine patch, patient states he only occasionally smokes at home
--- NOTE | 2022-01-26 16:07 | EXP.BH.CONS ---
History of Present Illness *Admission Date: 01/26/22 *Reason for visit:: intentional overdose *History of present illness: I was consulted on this patient related to intentional overdose. He is a known patient to me; but I have not seen him since August 2021; related to no show to appointments. He states that he has been off his medicines for months; since around September. -cause on them he didn't feel like himself -that he just stopped them all -when asked how they made him feel; he said not like himself; and blah -made him feel flat -he states that he has been working out a lot -cause of anger and irritability -this helps him calm down -he states that last night he intentionally overdosed cause he is scared of 'getting fucked' -issues with his -finances -losing his kids -he states that she packed up everything when he was at work on Sunday and left -she is staying at her parents house -he is there by himself with nothing -she took their kids; ages 4 and 6 months He states that he took the pills with the intention to kill himself. -that at first he took 2 -then 2 more -then 4 more -then he scooped some up in his hand and took them -he estimates he took 15-20 of them -he said 'fuck it' -then he regretted this -he changed his mind and decided that he wanted to live -and he drove himself here to the ER He states that he is tired. He is not sleeping well since off of his medicines. He is still working. Not calling into work. He states that he will go to work; but doesn't want to do anything. Feels that his work ethic has decreased. He states that he ain't been worth nothing lately. He states that he missed his appointments cause of no insurance. -he was on his parents insurance -and mom quit her job -so he hasn't gotten any right now -he states that he can get this through his work; but hasn't even looked into it [facility] 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 (Updated 01/26/22 @ 16:17 by Kecia Santamaria APRN) Asthma Depression Family History (Updated 01/26/22 @ 15:50 by DEENA Vazquez) Cancer Hypertension Social History (Updated 01/26/22 @ 11:48 by Rehana Rivera RN) Smoking Status: Current some day smoker tobacco type: cigarettes packs per day: 1 alcohol intake: current substance use type: marijuana current occupational status: employed Travel in the last 8 weeks: None household members: family and children housing: house lives independently: Yes number of children: 2 education level: high school 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 pets and animals: Yes pets and animals: cat(s) and dog(s) sexually active: Yes caffeine: Yes Review of Systems Constitutional Constitutional: Reports headache(s) and Denies weakness ENT Ears, Nose, Mouth, and Throat: Reports dizziness, Reports headache(s) and Denies vertigo *Neurologic Neurologic: Reports behavioral changes, Reports dizziness, Reports headache(s), Denies vertigo and Denies weakness Psychiatric Psychiatric: Reports abnormal sleep pattern, Reports anxiety, Reports behavioral changes, Reports depression, Reports difficulty concentrating, Reports homicidal ideation, Reports hopelessness, Reports irritability, Reports mood swings and Reports suicidal ideation Meds Home Medications and Allergies Home Medications Medication Instructions Recorded Confirmed Type fluoxetine 20 mg capsule 20 mg PO DAILY MOOD 01/26/22 01/26/22 History New Prescriptions to Start Prescriptions: Allergies Allergy/AdvReac Type Severity Reaction Status Date / Time No Known Allergies Allergy Verified 10/24/21 09:53 Assessment and Plan *Assessment and plan (1) Suicidal ideation: Status: Acute Category: Medical Code(s): R45.851 - Suicidal ideations (2) Medication overdose: Status: Acute Qualifiers: Encounter type: initial encounter Injury intent: intentional self-harm Qualified Code(s): T50.902A - Poison
[2022-01-27] VITALS (7 sets, daily range): BP systolic 109–134; BP diastolic 45–69; PULSE 50–70; RESP 16–20; TEMP 36.5–36.6; O2SAT 98–100; BMI 23.7
--- NOTE | 2022-01-27 05:37 | PC.NURSE ---
pt A&OX4. one on one tech present. pt seems to be in good spirit this shift. no complaints at this time. sinus scarlett with prolonged QT interval present on tele. CB in reach.
--- NOTE | 2022-01-27 08:16 | ECG_ITS ---
APPROVED REPORT Exam: Resting ECG HR:48 bpm ECG Measurements Heart Rate 48 AXES MO 141 P 58 QRSd 84 QRS 81 QT 518 T 69 QTc 486 Conclusion SINUS BRADYCARDIA WITH SINUS ARRHYTHMIA MARKED ST ELEVATION, in multiple leads - consider pericarditis UNCONFIRMED REPORT Electronically signed by : Kaleb Bustamante MD 01/28/2022 09:53:21
--- NOTE | 2022-01-27 08:16 | ECG_ITS ---
APPROVED REPORT Exam: Resting ECG HR:48 bpm ECG Measurements Heart Rate [address] 141 P 58 QRSd 84 QRS 81 QT 518 T 69 QTc 486 Conclusion SINUS BRADYCARDIA WITH SINUS ARRHYTHMIA MARKED ST ELEVATION, in multiple leads - consider pericarditits UNCONFIRMED REPORT Electronically signed by : Kaleb Bustamante MD 01/28/2022 09:52:55
--- NOTE | 2022-01-27 09:06 | P.PN_ITS ---
Subjective *Date: 01/27/22 *Time: 16:29 Interval history: Patient states he is feeling about the same today. He just feels tired. He is eating his breakfast this morning and has an appetite. Admits to feeling depressed Medical Exam Vital signs and Labs for Last 24 Hours: Temp Pulse Resp BP Pulse Ox 97.7 F 54 L 20 126/57 L 100 01/27/22 07:49 01/27/22 07:49 01/27/22 07:49 01/27/22 07:49 01/27/22 07:49 I & O for Labs for Last 24 Hours: Intake & Output 01/24/22 01/25/22 01/26/22 01/27/22 11:59 11:59 11:59 11:59 Intake Total 960 / 960 Output Total 0 / 0 0 / 0 Balance 0 / 0 960 / 960 Weight 180 lb 169 lb 8.272 oz Constitutional: Present no acute distress Respiratory: Present CTA bilaterally Cardiac: Present Reg Rate and Rhythm GI: Present soft and normal bowel sounds; Absent distention or tenderness Extremities: Absent edema, clubbing or cyanosis Skin: Present intact Neuro: Present alert and awake Assessment and Plan *Assessment and plan (1) Medication overdose: Status: Acute Qualifiers: Encounter type: initial encounter Injury intent: intentional self-harm Qualified Code(s): T50.902A - Poisoning by unspecified drugs, medicaments and biological substances, intentional self-harm, initial encounter Category: Medical Code(s): T50.901A - Poisoning by unspecified drugs, medicaments and biological substances, accidental (unintentional), initial encounter (2) Prolonged QT interval: Status: Acute Category: Medical Code(s): R94.31 - Abnormal electrocardiogram [ECG] [EKG] (3) Suicidal ideation: Status: Acute Category: Medical Code(s): R45.851 - Suicidal ideations (4) Depression: Status: Acute Category: Medical Code(s): F32.A - Depression, unspecified Plan The patient informed behavioral health he over longer wanted to go to [facility]. She feels he should be transferred to a psychiatric hospital for stabilization and medical management once medically stable. Cardiology will need to review his EKG today and care management is going to work on placement. Assessment and plan all Dx Assessment and Plan All Dx:: Patient seen and examined this morning. He slept for most of the night. Affect is flat. soft boarder has been stable through the night. Awaiting cardiology clearance for transfer to inpatient psych facility.
--- NOTE | 2022-01-27 09:14 | SW/DCPLANNER ---
Addendum entered by Rehana Pitts 01/27/22 12:38: This patient has been accepted to [facility] today. Patient will transport via [facility]. Addendum entered by Rehana Pitts 01/27/22 12:00: Updated Cardiology note has been faxed to Intake at [facility]. Original Note: Patient is interested in placement at [facility] due to depression/suicidal thoughts. Patient information has been faxed to Intake at [facility]. I will follow up with [facility] once patient information is reviewed. Per Dr Renee and Cardiology patient is medically stable for discharge today.
--- NOTE | 2022-01-27 11:44 | PC.NURSE ---
Pt had 1 unmeasured void. Pt ambulated to and from the bathroom with gait and balance satisfactory. Pt is hooked back up to pvc monitor and is back in bed.
--- NOTE | 2022-01-27 11:49 | EXP.CARD.PN ---
Subjective Subjective Date: 01/27/22 Time: 11:49 Principal diagnosis: overdose, prolonged QTc Interval history: This is a 26-year-old gentleman who presented to the emergency department after an intentional overdose. The patient states that he had taken 15 tablets of buspirone with an attempt to commit suicide. This was prescription medication. This morning he denies any chest pain or pressure. He denies any shortness of breath or edema. He denies any fever, chills, nausea, vomiting, diarrhea, PND or orthopnea. He denies any dizziness or lightheadedness today. The patient states that he has been very depressed after going through a break-up with his . He has been hospitalized for mental health before approximately a year ago at [facility]. After his attempt at overdosing the patient's QTC interval was prolonged on EKG. Poison control was contacted and supplemental magnesium was recommended and to help clear out the buspirone faster. This morning the patient's QTC is down to 486 ms by EKG. Exam Data for Last 24 hours Vital signs and Labs for Last 24 Hours: Temp Pulse Resp BP Pulse Ox 97.9 F 60 18 109/69 L 100 01/27/22 11:26 01/27/22 11:26 01/27/22 11:26 01/27/22 11:26 01/27/22 11:26 I & O for Last 24 hours: Intake & Output 01/24/22 01/25/22 01/26/22 01/27/22 23:59 23:59 23:59 23:59 Intake Total 720 / 720 240 / 240 Output Total 0 / 0 0 / 0 Balance 720 / 720 240 / 240 Weight 171 lb 3 oz 169 lb 8.272 oz Constitutional Constitutional: no acute distress and average body habitus *Routine HEENT Exam Head: Present normocephalic and atraumatic ENT: Present mucous membranes moist *Routine Neck Exam Neck: Present supple, full ROM and normal carotid upstroke; Absent JVD, carotid bruit or lymphadenopathy *Routine Respiratory Exam Respiratory: Present CTA bilaterally, normal respiratory effort, able to speak in complete sentences and symmetric chest movement *Routine Cardiovascular Exam Cardiovascular: Present RRR, Normal S1 and Normal S2; Absent murmur or gallop *Routine Abdominal Exam Abdominal: Present soft and normoactive bowel sounds; Absent tenderness, distended or organomegaly *Routine Extremities Exam Extremities: Present full ROM, pulses intact and normal capillary refill; Absent cyanosis, clubbing or edema *Routine Skin Exam Skin: Present intact and warm; Absent erythema *Routine Neurological Exam Neurological: Present alert, oriented X3 and CN II-XII intact; Absent sensory deficit or motor deficit Routine Psychiatric Exam Psychiatric: Present normal affect Progress Note: A&P Assessment and plan (1) Prolonged QT interval: Status: Acute (2) Medication overdose: Status: Acute (3) Suicidal ideation: Status: Acute Assessment and Plan Assessment and Plan for All Diagnoses:: Plan: 1. The patient had prolonged QTC intervals secondary to medication overdose with buspirone. The patient has been on telemetry to monitor for any arrhythmias. He has had no arrhythmias overnight. He was also given supplemental magnesium. He tolerated this well. The patient's QTC this morning is down to 486 ms. 2. The patient's EKG shows sinus rhythm with early repolarization and a QTc interval of 486 ms. 3. His blood pressure is well controlled. 4. His LDL goal is less than 100. 5. The patient did have suicidal ideation and did attempt to overdose. The patient will need to be referred to a behavioral health and is actually going to be sent to [facility] today for treatment of his underlying psychological/behavior health problems. 6. The patient is stable for discharge today from a cardiac standpoint as his QTc interval is under 500 ms. No further cardiac work-up is needed at this time. Thank you for the opportunity to help participate in the care of this patient. All recommendations and orders are per Dr. Townsend.
--- NOTE | 2022-01-27 12:38 | EXP.DC.SUM ---
General Admission date:: 01/26/22 Discharge date: 01/27/22 HPI HPI HPI: 26-year-old male presented to the emergency department after intentional overdose with approximately 15 tablets of 5 mg buspirone over 1 hour period.? Patient states this was prompted by his leaving him and taking both children (ages 6 months and 4 years).? Cardiology consulted due to QTC prolongation on EKG.? Currently no arrhythmias.? Poison control was contacted and suggested supplemental magnesium to get the value up to the upper limits of normal which could help clear out the buspirone a little faster. (above as per Omer Meek - Cardiology) Further to above, the patient does see Dr. Gutierrez and Kecia Santamaria.? He stopped taking his psychiatric medications back in September. Hospital Course Hospital Course Hospital Course: The patient was seen in consultation by cardiology and they wanted to observe him on telemetry and treat arrhythmias as needed. They gave him supplemental magnesium to achieve a magnesium level at the upper range of normal as per poison control. He was also seen by behavioral health. He had not been seen in Kecia Santamaria office since August 2021. He had been off of his medications since September. His left him and took their 2 children, which was the reason for his overdose. He regretted his decision to overdose after he did it and changed his mind and wanted to live, therefore he drove himself to the emergency room. He has not had insurance, which is why he missed his appointments at the behavioral health clinic. Kecia Santamaria felt he would need to be transferred to a psychiatric hospital for stabilization and medical management once medically cleared. By 01/27/2022, he had had no arrhythmias. His QTC was down to 486 ms. It was felt he was stable to be discharged to [facility] for treatment of his underlying psychological/behavioral health problems. Exam Data for Last 24 hours Vital signs and Labs for Last 24 Hours: Temp Pulse Resp BP Pulse Ox 97.9 F 60 18 109/69 L 100 01/27/22 11:26 01/27/22 11:26 01/27/22 11:26 01/27/22 11:26 01/27/22 11:26 I & O for Last 24 hours: Intake & Output 01/25/22 01/26/22 01/27/22 01/28/22 11:59 11:59 11:59 11:59 Intake Total 960 / 960 Output Total 0 / 0 0 / 0 Balance 0 / 0 960 / 960 Weight 180 lb 169 lb 8.272 oz Narrative: Constitutional: Present no acute distress Respiratory: Present CTA bilaterally Cardiac: Present Reg Rate and Rhythm GI: Present soft and normal bowel sounds; Absent distention or tenderness Extremities: Absent edema, clubbing or cyanosis Skin: Present intact Neuro: Present alert and awake DS: Diagnosis Discharge Diagnosis (1) Prolonged QT interval: Status: Acute (2) Medication overdose: Status: Acute (3) Suicidal ideation: Status: Acute (4) Depression: Status: Acute Meds Home Medications and Allergies New Prescriptions to Start Prescriptions: Allergies Allergy/AdvReac Type Severity Reaction Status Date / Time No Known Allergies Allergy Verified 10/24/21 09:53 Discharge Plan Disposition Patient Disposition: Xfer Psychiatric Hosp Condition: Fair Discharge Order Discharge Orders: Discharge Order (Routine); Ordered 01/27/22 Ordered By: Theodore Renee Follow up Plan Prescriptions/Medication Reconciliation: Discontinued fluoxetine 20 mg capsule 20 mg PO DAILY Label Comments: TAKE ONE CAPSULE BY MOUTH EVERY DAY Problem Reconciliation Problems Reviewed?: Yes Patient Discharge Instructions DIET: continue same diet Patient Instructions: Symptoms of Depression in Men, Depression, DI for Depression -- Adult, How to Create a Suicide Prevention Safety Plan Providers Primary Care Provider: Vlad Gutierrez Admit Provider: Theodore Renee Attending Provider: Theodore Renee
--- NOTE | 2022-01-27 13:09 | PC.NURSE ---
report called to Marleen Miller in [place]
--- NOTE | 2022-01-27 14:17 | PC.NURSE ---
pt has showered. [facility] called for transport.
--- NOTE | 2022-01-27 15:25 | PC.NURSE ---
[place] police department ([employer]) called to relay that they no longer transport pts for suicidal ideation unless court ordered. This has been in effect for 2 wks now. [facility] called for transport and will arrive shortly.
--- NOTE | 2022-01-27 15:43 | PC.NURSE ---
arrival of [facility]
== END 2022-01-27 15:47 ==
LOC: ER 07:51 → 2ND 08:26
PROVIDERS: Admitting Provider Family Medicine; Emergency Provider Emergency Medicine; PCP Internal Medicine; Visit Provider Family Medicine
DX: R45.851 Suicidal ideations (principal); T43.592A Poisoning by other antipsychotics and neuroleptics, intentional self-harm, initial encounter; F32.A Depression, unspecified; F17.210 Nicotine dependence, cigarettes, uncomplicated; R94.31 Abnormal electrocardiogram [ECG] [EKG]; Z20.822 Contact with and (suspected) exposure to COVID-19
CPT/HCPCS: 80048; 80076; 80305; 80329; 82962; 83735; 85025; 93005; 99285; C9803; G0378; U0003; U0005

== ENCOUNTER 2022-05-04 19:14 | Emergency (ER) | payer OTHER, SELFPAY ==
[2022-05-04 19:32] VITALS: BP 143/73; PULSE 104; RESP 18; TEMP 37.1; O2SAT 96; BMI 24.4
--- NOTE | 2022-05-04 19:32 | XR_ITS ---
PROCEDURE INFORMATION: Exam: XR Right Knee Exam date and time: 05/04/2022 7:32 PM Age: 27 years old Clinical indication: Pain; Knee; Right TECHNIQUE: Imaging protocol: Radiologic exam of the Right knee. Views: 3 views. COMPARISON: No relevant prior studies available. FINDINGS: Bones/joints: Normal. Soft tissues: Normal. IMPRESSION: No acute findings.
--- NOTE | 2022-05-04 19:41 | EXP.UTC ---
Discharge Plan Disposition Patient Disposition: Home, Self-Care Condition: Good Prescriptions Prescriptions: New sulfamethoxazole-trimethoprim [Bactrim DS] 800-160 mg Tablet 1 tab PO BID Qty: 20 0RF cephalexin 500 mg capsule 500 mg PO QID Qty: 40 0RF mupirocin 2 % ointment 1 applic topical TID 7 Days Qty: 22 0RF No Action fluoxetine [Prozac] 40 mg capsule 40 mg PO DAILY Qty: 30 1RF lamotrigine [Lamictal] 100 mg tablet 50 mg PO DAILY Qty: 30 1RF Referrals Follow up/Referrals: Vlad Gutierrez MD [Primary Care Provider] - See instructions Activity Restrictions/Add. Instructions Additional Instructions/Restrictions: Keep the wound as clean and dry as you can, Stay off the leg and keep it elevated as much time as tolerated for the next few days. Watch the wound for signs of infection, such as redness, swelling, drainage, fever. etc. Take tylenol or ibuprofen for pain. Follow up with your regular doctor. GO TO THE ER FOR ANY WORSENING SYMPTOMS OR CONCERNS. Clinical Impressions Clinical Impression: Cellulitis Qualifiers: Site of cellulitis: extremity Site of cellulitis of extremity: lower extremity Laterality: right Qualified Code(s): L03.115 - Cellulitis of right lower limb Stand Alone Forms Stand Alone Forms: Work/School Release Instructions Patient Instructions: Cellulitis Discharge ED Provider: Tirso Thomas [facility] General Stated complaint: spot on RT leg Mode of Arrival: Ambulatory Source of Information: Patient Limitations: No Limitations Time Seen by Provider: 05/04/22 19:40 Description of Symptoms (Recalled from Triage Doc. by RN): pt comes in with c/o spot on knee, whole leg is in pain. symptoms began yesterday HEENT Symptoms (Recalled from RN notes): No Resp Symptoms (Recalled from RN notes): No Skin Symptoms (Recalled from RN notes): Yes MS Symptoms (Recalled from RN notes): No Functional Status (Recalled from RN notes): n/a History of Present Illness Provider Complaint: He states he has right lower leg swelling and tenderness. He has had a wound just below his knee for the past several days. He got the wound from crawling around on his knees while working on a piece of equipment. 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 He denies any fever or chills. He is not a diabetic. He does not have a personal or family history of blood clots. He denies pain or tenderness in the back of his calf or elsewhere on his leg. Related Data Previous Rx's Medication Instructions Recorded fluoxetine 40 mg capsule (Prozac) 40 mg PO DAILY #30 caps 03/27/22 lamotrigine 100 mg tablet 50 mg PO DAILY #30 tabs 03/27/22 (Lamictal) cephalexin 500 mg capsule 500 mg PO QID #40 caps 05/04/22 mupirocin 2 % topical ointment 1 applic topical TID 7 days #22 05/04/22 grams sulfamethoxazole 800 1 tab PO BID #20 tabs 05/04/22 mg-trimethoprim 160 mg tablet (Bactrim DS) Allergies Allergy/AdvReac Type Severity Reaction Status Date / Time No Known Allergies Allergy Verified 03/30/22 10:47 Worker's Comp Is this a Worker's Comp case?: No [facility] Disclaimer: The information contained in this section may have been updated after the patient was seen, as this information can be updated by other users. 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 Asthma Bipolar I disorder Depression Family History Other Cancer Hypertension Social History Smoking Status: Current some day smoker tobacco type: cigarettes packs per day: 1 alcohol intake: current substance use type: marijuana current occupational status: employed Travel in the last 8 weeks: None household members: family and children housing: house lives in
[2022-05-04 20:14] VITALS: BP 143/73; PULSE 104; RESP 18; TEMP 37.1
== END 2022-05-04 20:24 | disposition home or self-care (01) ==
PROVIDERS: Emergency Provider Nurse Practitioner Family; PCP Internal Medicine
DX: L03.115 Cellulitis of right lower limb (principal)
CPT/HCPCS: 73562; 96372; 99212; G0463; J0696

== ENCOUNTER 2022-09-01 13:07 | Emergency (ER) | payer SELFPAY ==
[2022-09-01 13:15] VITALS: BP 139/59; PULSE 69; RESP 22; TEMP 37; O2SAT 96; BMI 24.4
--- NOTE | 2022-09-01 13:47 | EXP.UTC ---
Discharge Plan Disposition Patient Disposition: Home, Self-Care Condition: Good Prescriptions Prescriptions: New methylprednisolone [Medrol (Ian)] 4 mg tablets,dose pack 4 mg PO DIRECTED Qty: 21 0RF No Action fluoxetine [Prozac] 40 mg capsule 20 mg PO DAILY lamotrigine [Lamictal] 100 mg tablet 50 mg PO DAILY Referrals Follow up/Referrals: Vlad Gutierrez MD [Primary Care Provider] - See instructions Activity Restrictions/Add. Instructions Additional Instructions/Restrictions: Can take Zantac, Benadryl as well Follow up with Dr Gutierrez if not improving Clinical Impressions Clinical Impression: Rash and nonspecific skin eruption Instructions Patient Instructions: DI for Rash Discharge ED Provider: Regla Amos [facility] General Stated complaint: Possible hives arms/side Mode of Arrival: Ambulatory Source of Information: Patient Limitations: No Limitations Time Seen by Provider: 09/01/22 13:48 Description of Symptoms (Recalled from Triage Doc. by RN): PATIENT C/O HIVES TO BILATERAL ARMS AND SIDES THAT STARTED LAST NIGHT HEENT Symptoms (Recalled from RN notes): No Resp Symptoms (Recalled from RN notes): No Skin Symptoms (Recalled from RN notes): Yes MS Symptoms (Recalled from RN notes): No Functional Status (Recalled from RN notes): WNL History of Present Illness Provider Complaint: Rash on right arm and right side since last night. No new exposures. Was at work when it started. Benadryl helped a little. Onset (ago): day(s) (1) Location: right and upper extremity Relieving factors: none Exacerbating factors: none Treatments prior to arrival: other (Benadryl) Related Data Home Medications Medication Instructions Recorded Confirmed fluoxetine 40 mg capsule (Prozac) 20 mg PO DAILY Depression 09/01/22 09/01/22 lamotrigine 100 mg tablet 50 mg PO DAILY Anxiety 09/01/22 09/01/22 (Lamictal) Previous Rx's Medication Instructions Recorded methylprednisolone 4 mg tablets in 4 mg PO DIRECTED #21 tabs 09/01/22 a dose pack (Medrol (Ian)) Allergies Allergy/AdvReac Type Severity Reaction Status Date / Time No Known Allergies Allergy Verified 03/30/22 10:47 Worker's Comp Is this a Worker's Comp case?: No [facility] Disclaimer: The information contained in this section may have been updated after the patient was seen, as this information can be updated by other users. 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 pets and animals: Yes pets and animals: cat(s) and dog(s) sexually active: Yes caffeine: Yes ROS Obtained: Yes All systems reviewed & no additional complaints except as documented Constitutional Constitutional: Denies chills and Denies fever(s) Eyes Eyes: Denies eye discharge ENT Ears, Nose, Mouth, and Throat: Denies dizziness, Denies otalgia and Denies sore throat Cardiovascular Cardiovascular: Denies chest pain Respiratory Respiratory: Denies shortness of breath, Denies chest congestion, Denies cough, Denies stridor and Denies wheezing Gastrointestinal Gastrointestingal: Denies nausea or vomiting Musculoskeletal Musculoskeletal: Reports system reviewed and no additional complaints, except as documented and Denies arthralgias Integumentary/Breasts Skin/Breast: Reports as per HPI, Reports pruritus and Reports rash Neurologic
[2022-09-01 14:11] VITALS: BP 139/59; PULSE 69; RESP 22; TEMP 37
== END 2022-09-01 14:12 | disposition home or self-care (01) ==
PROVIDERS: Emergency Provider Physician Assistant; PCP Internal Medicine
DX: R21 Rash and other nonspecific skin eruption (principal); F17.210 Nicotine dependence, cigarettes, uncomplicated
CPT/HCPCS: 99212; 99214; G0463

== ENCOUNTER 2022-09-09 15:00 | Emergency (ER) | payer SELFPAY ==
[2022-09-09 15:21] VITALS: BP 125/75; PULSE 76; RESP 18; TEMP 36.6; O2SAT 100; BMI 24.4
--- NOTE | 2022-09-09 16:03 | EXP.UTC ---
Discharge Plan Disposition Patient Disposition: Home, Self-Care Condition: Good Prescriptions Prescriptions: New prednisone [prednisone] 20 mg tablet 20 mg PO BID Qty: 10 0RF Rx Instructions: start tomorrow triamcinolone acetonide 0.025 % cream 1 applic topical BID Qty: 15 0RF No Action fluoxetine [Prozac] 40 mg capsule 20 mg PO DAILY lamotrigine [Lamictal] 100 mg tablet 50 mg PO DAILY methylprednisolone [Medrol (Ian)] 4 mg tablets,dose pack 4 mg PO DIRECTED Qty: 21 0RF Referrals Follow up/Referrals: Vlad Gutierrez MD [Primary Care Provider] - See instructions Activity Restrictions/Add. Instructions Additional Instructions/Restrictions: return if symptoms worsen or do not improve follow up with pcp for further testing start Benadryl Clinical Impressions Clinical Impression: Rash and nonspecific skin eruption Instructions Patient Instructions: DI for General Allergic Reactions Discharge ED Provider: Hattie ([facility])[place] [facility] General Stated complaint: rash Mode of Arrival: Ambulatory Source of Information: Patient Limitations: No Limitations Time Seen by Provider: 09/09/22 16:04 Description of Symptoms (Recalled from Triage Doc. by RN): pt c/o hives x3 days. pt states he came in for hives about two weeks ago and received some steroids. HEENT Symptoms (Recalled from RN notes): No Resp Symptoms (Recalled from RN notes): No Skin Symptoms (Recalled from RN notes): Yes MS Symptoms (Recalled from RN notes): No Functional Status (Recalled from RN notes): wnl History of Present Illness Provider Complaint: 27 yr old male presnets for rash all over. pt states he was treated 2 weeks ago for the same rash but after it being clear for 3-4 days the rash returned. pt states he has not changed anything that he can think of. thought it was due to grape soda but he has not drank it and he still broke out. pt states the rash comes and goes, sometimes it is worse than other times Related Data Home Medications Medication Instructions Recorded Confirmed fluoxetine 40 mg capsule (Prozac) 20 mg PO DAILY Depression 09/01/22 09/01/22 lamotrigine 100 mg tablet 50 mg PO DAILY Anxiety 09/01/22 09/01/22 (Lamictal) Previous Rx's Medication Instructions Recorded methylprednisolone 4 mg tablets in 4 mg PO DIRECTED #21 tabs 09/01/22 a dose pack (Medrol (Ian)) prednisone 20 mg tablet 20 mg PO BID #10 tabs 09/09/22 triamcinolone acetonide 0.025 % 1 applic topical BID #15 grams 09/09/22 topical cream Allergies Allergy/AdvReac Type Severity Reaction Status Date / Time No Known Allergies Allergy Verified 09/09/22 15:25 Worker's Comp Is this a Worker's Comp case?: No PFSH PFS Disclaimer: The information contained in this section may have been updated after the patient was seen, as this information can be updated by other users. 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
[2022-09-09 16:17] VITALS: BP 125/75; PULSE 76; RESP 18; TEMP 36.6
== END 2022-09-09 16:21 | disposition home or self-care (01) ==
PROVIDERS: Emergency Provider Nurse Practitioner Family; PCP Internal Medicine
DX: R21 Rash and other nonspecific skin eruption (principal); F17.210 Nicotine dependence, cigarettes, uncomplicated
CPT/HCPCS: 96372; 99212; 99214; G0463

== ENCOUNTER 2023-01-12 21:33 | Emergency (ER) | payer SELFPAY ==
[2023-01-12 21:34] VITALS: BP 136/77; PULSE 85; RESP 16; TEMP 36.8; O2SAT 98; BMI 26.4
--- NOTE | 2023-01-12 22:30 | US_ITS ---
PROCEDURE INFORMATION: Exam: US Scrotum Exam date and time: 01/12/2023 10:52 PM Age: 27 years old Clinical indication: Scrotum pain; Additional info: L torsion R/O. Acute pain TECHNIQUE: Imaging protocol: Real-time ultrasound of the scrotum and contents with color Doppler and image documentation. COMPARISON: US ABDOMEN LIMITED 12/17/2019 8:30 AM FINDINGS: Right testicle: Normal measuring 2.2 x 3.2 x 4.1 cm. No mass. No torsion. Normal vascular flow. Left testicle: Normal measuring 2.2 x 2.9 x 3.9 cm. No mass. No torsion. Normal vascular flow. Epididymides: Normal. Scrotum/soft tissues: The technologist notes comment on probable left-sided varicocele however, the vessels along the left pampiniform plexus are not adequately evaluated on this exam to make this diagnosis. IMPRESSION: Normal scrotal ultrasound. No evidence for testicular torsion.
--- NOTE | 2023-01-12 22:30 | PC.NURSE ---
Called RAD to notify needing US for torsion
[2023-01-12 22:33] LABS: Microscopic, Urine URINE MICROSCOPIC (MICROSCOPIC)
--- NOTE | 2023-01-12 22:36 | HMH.EDGENADL ---
Discharge Plan Disposition Patient Disposition: Home, Self-Care Chief Complaint: Urogenital-Male Prescriptions Prescriptions: No Action fluoxetine [Prozac] 40 mg capsule 20 mg PO DAILY lamotrigine [Lamictal] 100 mg tablet 50 mg PO DAILY methylprednisolone [Medrol (Ian)] 4 mg tablets,dose pack 4 mg PO DIRECTED Qty: 21 0RF prednisone [prednisone] 20 mg tablet 20 mg PO BID Qty: 10 0RF Rx Instructions: start tomorrow triamcinolone acetonide 0.025 % cream 1 applic topical BID Qty: 15 0RF Referrals Follow up/Referrals: Vlad Gutierrez MD [Primary Care Provider] - See instructions Activity Restrictions/Add. Instructions Additional Instructions/Restrictions: Call your family doctor to establish care for this visit to the emergency department and schedule follow-up within 48 hours to ensure improvement. If you have any worsening of your condition or any other concerning signs or symptoms, return to the emergency department or your primary care doctor for further evaluation. Take Tylenol 1000 mg every 6 hours (4 times daily) and ibuprofen 400 mg every 6 hours (4 times daily) as needed with food and water to prevent GI upset and kidney damage. Clinical Impressions Clinical Impression: Left testicular pain Instructions Patient Instructions: DI for Urinary Tract Infection (UTI), DI for Urinary Tract Infection in Children Discharge ED Provider: Ariel Johnston General Adult HPI General Chief complaint: Urogenital-Male Stated complaint: testicular pain Time Seen by Provider: 01/12/23 21:42 Mode of Arrival: Ambulatory Source of Information: Patient Limitations: No Limitations Description of Symptoms (Recalled from ER Triage Doc. by RN): pt reports that he started having right testicle pain today around 3pm, noticed it after sitting. denies any other symptoms History of Present Illness HPI narrative: Is a 27-year-old male with no relevant medical history presenting with testicular pain. Patient states that around 4 PM, he stood up in his car, realized his left testicle was hurting significantly. Was nauseated without vomiting. Denies fevers, chills, dysuria, hematuria, penile discharge, trauma to the area, or any other concerns. Moderate to severe pain with application of pressure. Moderate pain in the absence of pressure. Related Data Home Medications Medication Instructions Recorded Confirmed fluoxetine 40 mg capsule (Prozac) 20 mg PO DAILY Depression 09/01/22 09/01/22 lamotrigine 100 mg tablet 50 mg PO DAILY Anxiety 09/01/22 09/01/22 (Lamictal) Previous Rx's Medication Instructions Recorded methylprednisolone 4 mg tablets in 4 mg PO DIRECTED #21 tabs 09/01/22 a dose pack (Medrol (Ian)) prednisone 20 mg tablet 20 mg PO BID #10 tabs 09/09/22 triamcinolone acetonide 0.025 % 1 applic topical BID #15 grams 09/09/22 topical cream Allergies Allergy/AdvReac Type Severity Reaction Status Date / Time No Known Allergies Allergy Verified 09/09/22 15:25 [facility] Disclaimer: The information contained in this section may have been updated after the patient was seen, as this information can be updated by other users. 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
--- NOTE | 2023-01-12 22:55 | PC.NURSE ---
Ultrasound transporting patient to ultrasound.
[2023-01-12 23:01] LABS: Appearance,Urine Clear (Clear); Bilirubin,Urine Negative (Negative); Blood, Urine Negative (Negative); Color,Urine Yellow (Yellow); Glucose,Urine (UA) Negative (Negative); Ketones,Urine Negative (Negative); Leukocyte Esterase,Urine Negative (Negative); Nitrate,Urine Negative (Negative); Protein,Urine Negative (Negative); Specific Gravity, Urine 1.015 (1.005-1.030); Squamous Epithelial Cell,Urine Occasional #/hpf (0-5); Urobilinogen,Urine 0.2 EU/dl (0.2)
--- NOTE | 2023-01-12 23:21 | PC.NURSE ---
Pt back from US
[2023-01-12 23:50] VITALS: BP 128/73; PULSE 81; RESP 16; TEMP 36.8; O2SAT 98
[2023-01-18 03:52] LABS: Neisseria gonorrhoeae, NAA Negative (Negative)
== END 2023-01-12 23:51 | disposition home or self-care (01) ==
PROVIDERS: Emergency Provider Emergency Medicine; PCP Internal Medicine
DX: N50.812 Left testicular pain (principal); R11.0 Nausea; F31.9 Bipolar disorder, unspecified; J45.909 Unspecified asthma, uncomplicated; F17.210 Nicotine dependence, cigarettes, uncomplicated
CPT/HCPCS: 76870; 81001; 87491; 87591; 99284